=== PATIENT | female | born 1955 | race Caucasian/White ===

== ENCOUNTER 2021-07-15 17:24 | Inpatient (IN) | payer MEDICARE, OTHER ==
[~2021-07-15] VITALS: Ht 167.6 cm; Wt 98.1 kg
--- NOTE | 2021-07-15 18:11 | NUR ---
pt states she started c a fever last week and feeling very weak today. pt states her daughters are both +covid and live in same house. pt is not vax. "it changes your dna..i had a bad reaction to a vax in the ". piv estb. labs drawn c b/c x 2. placed on all monitors. pt was wheeled from lobby on 6l nc, 68%. placed on oxy mask at 15L, increased to 94%. call light inreach. cxr completed. aware of pending tests. will ctm.
[2021-07-15 18:12] LABS: BASOPHILS % (AUTO) 1 % (0-1); EOSINOPHILS % (AUTO) 1 % (1-7); LYMPHOCYTES % (AUTO) 16 % (22-44); MEAN CORPUSCULAR HEMOGLOBIN 29.9 pg (27.0-34.8); MEAN CORPUSCULAR HGB CONC 35.2 g/dL (32.4-35.8); MEAN PLATELET VOLUME 7.5 fL (7.4-10.4); MONOCYTES % (AUTO) 6 % (2-9); NEUTROPHILS % (AUTO) 76 % (42-75); PLATELET COUNT 278 x10^3/uL (130-400); RED BLOOD COUNT 4.75 x10^6/uL (3.82-5.3); RED CELL DISTRIBUTION WIDTH 14.2 % (9.6-15.2)
[2021-07-15 18:22] LABS: ALANINE AMINOTRANSFERASE 32 U/L (12-78); ALBUMIN 2.6 g/dL (3.4-5.0); ANION GAP 8 mmol/L (5-15); CALCIUM 8.1 mg/dL (8.5-10.1); CHLORIDE 95 mmol/L (98-107); CREATININE 0.89 mg/dL (0.55-1.02)
[2021-07-15 18:25] LABS: ALKALINE PHOSPHATASE 63 U/L (45-117); BILIRUBIN,TOTAL 0.9 mg/dL (0.2-1.0); TOTAL PROTEIN 6.8 g/dL (6.4-8.2)
--- NOTE | 2021-07-15 18:56 | NUR ---
Report from Sybil MISTRY
[2021-07-15] MEDS ORDERED: DEXAMETHASONE 4 MG/ML, 1ML IVPush ONE (19:00)
[2021-07-15] MEDS ORDERED: DOXYCYCLINE 100 MG in DEXTROSE 5% 250 ML IV SCH (19:00)
[2021-07-15] MEDS ORDERED: DEXAMETHASONE 4 MG/ML, 1ML ONE (19:36)
[2021-07-15] MEDS ORDERED: DOCUSATE 100 MG CAPSULE PO PRN (21:00)
[2021-07-15] MEDS ORDERED: MELATONIN 5 MG TABLET PO PRN (21:00)
[2021-07-15] MEDS ORDERED: ACETAMINOPHEN 325 MG TABLET PO PRN (21:00)
[2021-07-15] MEDS: ASCORBIC ACID 250 MG TAB PO SCH (21:00)
[2021-07-15] MEDS ORDERED: ONDANSETRON 2MG/ML, 2ML IVPush PRN (21:00)
[2021-07-15] MEDS ORDERED: CHOLECALCIFEROL 1,000 UNIT TABLET ONE (22:45)
[2021-07-15] MEDS ORDERED: ASCORBIC ACID 500 MG TABLET ONE (23:47)
--- NOTE | 2021-07-16 02:18 | NUR ---
PATIENT RESTING ON STRETCHER WITH EYES CLOSED. NAD. OXY MASK ON. CALL PICKENS IN REACH. BEDSIDE COMMODE IN REACH. WILL CONTINUE TO MONITOR.
--- NOTE | 2021-07-16 02:30 | NUR ---
Task RN: Patient has oxymask on and sats maintained at 79%. Applied NRB at 15lpm.
--- NOTE | 2021-07-16 03:59 | NUR ---
PATIENT PROVIDED WATER REQUESTED.
--- NOTE | 2021-07-16 04:10 | NUR ---
RT CALLED AT THIS TIME TO INITIATE HIGH FLOW NC DUE TO PATIENT BEING 73% SPO2 ON 15L NRB.
[2021-07-16] MEDS: DOXYCYCLINE 100 MG in DEXTROSE 5% 250 ML IV SCH ×2 (06:12→17:58)
[2021-07-16 06:22] LABS: ALBUMIN 2.7 g/dL (3.4-5.0); ANION GAP 8 mmol/L (5-15); CALCIUM 8.3 mg/dL (8.5-10.1); CHLORIDE 100 mmol/L (98-107)
[2021-07-16 06:25] LABS: ALANINE AMINOTRANSFERASE 30 U/L (12-78); ALKALINE PHOSPHATASE 59 U/L (45-117); BASOPHILS % (AUTO) 1 % (0-1); BILIRUBIN,TOTAL 0.8 mg/dL (0.2-1.0); CREATININE 0.78 mg/dL (0.55-1.02); EOSINOPHILS % (AUTO) 0 % (1-7); LYMPHOCYTES % (AUTO) 12 % (22-44); MEAN CORPUSCULAR HEMOGLOBIN 29.6 pg (27.0-34.8); MEAN CORPUSCULAR HGB CONC 35.1 g/dL (32.4-35.8); MEAN PLATELET VOLUME 7.7 fL (7.4-10.4); MONOCYTES % (AUTO) 6 % (2-9); NEUTROPHILS % (AUTO) 81 % (42-75); PLATELET COUNT 282 x10^3/uL (130-400); RED BLOOD COUNT 4.64 x10^6/uL (3.82-5.3); RED CELL DISTRIBUTION WIDTH 14.5 % (9.6-15.2); TOTAL PROTEIN 6.7 g/dL (6.4-8.2)
--- NOTE | 2021-07-16 06:53 | NUR ---
REPORT GIVEN TO FEDE LEONE.
[2021-07-16] MEDS ORDERED: ASCORBIC ACID 500 MG TABLET ONE ×2 (07:17→16:26)
[2021-07-16] MEDS ORDERED: ENOXAPARIN 40 MG/0.4 ML ONE (07:17)
[2021-07-16] MEDS: ENOXAPARIN 40 MG/0.4 ML SQ SCH ×2 (07:20→07:23)
[2021-07-16] MEDS: ASCORBIC ACID 250 MG TAB PO SCH (07:21)
--- NOTE | 2021-07-16 07:24 | NUR ---
patient in bed on oxygen. report taken and care assumed. brought patient morning medication of lovenox and she refused. stating she doesn't like shots, that she only takes natural meds. explained the importance of a blood thinner since she will be in bed and less mobile which puts her higher risk for clots/dvt's; refused. patient also began saying she does NOT want remdesvir.
[2021-07-16] MEDS ORDERED: ACETAMINOPHEN 325 MG TABLET PO PRN (07:30)
--- NOTE | 2021-07-16 07:38 | NUR ---
lab drawing pt
--- NOTE | 2021-07-16 07:49 | NUR ---
ordered hosp bed
--- NOTE | 2021-07-16 08:30 | NUR ---
got patient on hospital bed.
--- NOTE | 2021-07-16 08:54 | NUR ---
patient was adament to hospitalist that she wants to leave. she is refusing care. we discussed with ER MD Fraser because patient is on high flow nasal cannula and sat's mid to low 90% sitting up on high flow nasal cannula. Evelio discussed situation with patient and patient agreed to stay. comfort measures provided and helped patient get comfortable.
--- NOTE | 2021-07-16 09:29 | NUR ---
got patient breakfast tray.
[2021-07-16] MEDS ORDERED: ZINC SULFATE 220 MG CAPSULE ONE (09:34)
[2021-07-16] MEDS ORDERED: CHOLECALCIFEROL 5,000u TAB ONE (09:34)
[2021-07-16] MEDS: CHOLECALCIFEROL 5,000u TAB PO SCH (09:35)
[2021-07-16] MEDS: ZINC SULFATE 220 MG CAPSULE PO SCH (09:35)
--- NOTE | 2021-07-16 09:55 | NUR ---
patient ate most of meal tray. she is on phone.
--- NOTE | 2021-07-16 10:11 | NUR ---
patient up to bathroom. patient is not good at alerting staff and heard bed exit alarm, and came to help. got her safely to bathroom and back in bed. teaching done encouraging her to call call light for assistance
--- NOTE | 2021-07-16 11:20 | NUR ---
patient in bed, watching tv. ordering lunch
--- NOTE | 2021-07-16 12:20 | NUR ---
patient in bed watching tv. no complaints.
--- NOTE | 2021-07-16 13:07 | NUR ---
patient helped to bathroom, urine out in bsc
--- NOTE | 2021-07-16 13:18 | NUR ---
RELIEF RN: PT REFUSING REMDESIVIR INFUSION. DISCUSSED PRO/CONS C PT AND SHE CONTINUES TO REFUSE. WATCHING TV IN NAD. VSS. REMAINS ON HIGH FLOW.
--- NOTE | 2021-07-16 13:35 | NUR ---
RELIEF RN: DR TREVINO CONTACTED D/T PT REFUSING REMDESIVIR.
[2021-07-16] MEDS ORDERED: REMDESIVIR 200 MG in SODIUM CHLORIDE 0.9% 100 ML IVPB ONE (14:00)
--- NOTE | 2021-07-16 14:07 | NUR ---
patient refusing remdesvir.
--- NOTE | 2021-07-16 14:39 | NUR ---
patient eating all of lunch
[2021-07-16] MEDS: ASCORBIC ACID 500 MG TABLET PO SCH (16:38)
--- NOTE | 2021-07-16 17:52 | NUR ---
patient still eating left over chips and cookie, didn't want dinner tray.
--- NOTE | 2021-07-16 19:13 | NUR ---
report given to FEDE Williamson
[2021-07-16 20:20] VITALS: BP 133/88
[2021-07-17 01:13] VITALS: BP 108/58
[2021-07-17 06:04] LABS: ANION GAP 8 mmol/L (5-15); CALCIUM 8.6 mg/dL (8.5-10.1); CHLORIDE 104 mmol/L (98-107)
[2021-07-17 06:05] LABS: CREATININE 0.78 mg/dL (0.55-1.02)
[2021-07-17] MEDS ORDERED: CHOLECALCIFEROL 5,000u TAB ONE (07:15)
[2021-07-17] MEDS ORDERED: ZINC SULFATE 220 MG CAPSULE ONE (07:15)
[2021-07-17] MEDS ORDERED: ASCORBIC ACID 500 MG TABLET ONE (07:15)
[2021-07-17] MEDS ORDERED: ENOXAPARIN 40 MG/0.4 ML ONE (07:15)
[2021-07-17] MEDS: DOXYCYCLINE 100 MG in DEXTROSE 5% 250 ML IV SCH ×3 (07:22→18:35)
[2021-07-17] MEDS: ZINC SULFATE 220 MG CAPSULE PO SCH (07:22)
[2021-07-17] MEDS: CHOLECALCIFEROL 5,000u TAB PO SCH (07:22)
[2021-07-17] MEDS: ASCORBIC ACID 500 MG TABLET PO SCH ×2 (07:22→16:58)
[2021-07-17] MEDS: ENOXAPARIN 40 MG/0.4 ML SQ SCH ×2 (07:23→19:30)
--- NOTE | 2021-07-17 07:26 | NUR ---
PT REFUSING VIBRAMYCIN AND LOVENOX.
--- NOTE | 2021-07-17 09:01 | NUR ---
PT GIVEN JUICE AND PUDDING.
--- NOTE | 2021-07-17 12:30 | NUR ---
PT REPORT TO FEDE FELICIANO
[2021-07-17] MEDS ORDERED: REMDESIVIR 100 MG in SODIUM CHLORIDE 0.9% 100 ML IVPB SCH (13:00)
[2021-07-17 13:59] VITALS: BP 126/86
[2021-07-17 19:03] VITALS: BP 117/64
[2021-07-18 01:47] VITALS: BP 109/72
[2021-07-18 04:16] LABS: C-REACTIVE PROTEIN, QUANT 6.4 mg/dL (0.02-0.49)
[2021-07-18] MEDS: DOXYCYCLINE 100 MG in DEXTROSE 5% 250 ML IV SCH ×2 (06:09→19:32)
[2021-07-18] MEDS: ENOXAPARIN 40 MG/0.4 ML SQ SCH ×2 (06:09→19:33)
[2021-07-18 06:44] VITALS: BP 119/76
[2021-07-18] MEDS: ZINC SULFATE 220 MG CAPSULE PO SCH (11:29)
[2021-07-18] MEDS: CHOLECALCIFEROL 5,000u TAB PO SCH (11:29)
[2021-07-18] MEDS: ASCORBIC ACID 500 MG TABLET PO SCH ×2 (11:29→20:18)
[2021-07-18 14:39] VITALS: BP 126/72
[2021-07-18 19:00] VITALS: BP 114/68
[2021-07-19 01:45] VITALS: BP 118/65
[2021-07-19] MEDS: DOXYCYCLINE 100 MG in DEXTROSE 5% 250 ML IV SCH ×2 (06:34→19:00)
[2021-07-19] MEDS: CEFTRIAXONE 2 GM in DEXTROSE 5% 50 ML IVPB SCH (07:30)
[2021-07-19] MEDS: ENOXAPARIN 40 MG/0.4 ML SQ SCH ×2 (07:30→19:30)
[2021-07-19 09:04] VITALS: BP 122/69
[2021-07-19] MEDS: ZINC SULFATE 220 MG CAPSULE PO SCH (10:39)
[2021-07-19] MEDS: CHOLECALCIFEROL 5,000u TAB PO SCH (10:39)
[2021-07-19] MEDS: ASCORBIC ACID 500 MG TABLET PO SCH ×2 (10:39→17:00)
[2021-07-19 15:24] VITALS: BP 127/73
[2021-07-19 21:01] VITALS: BP 107/75
[2021-07-20 03:01] VITALS: BP 106/65
[2021-07-20] MEDS: DOXYCYCLINE 100 MG in DEXTROSE 5% 250 ML IV SCH ×2 (07:00→19:00)
[2021-07-20 07:04] VITALS: BP 101/67
[2021-07-20] MEDS: ENOXAPARIN 40 MG/0.4 ML SQ SCH ×2 (07:30→19:30)
[2021-07-20] MEDS: CEFTRIAXONE 2 GM in DEXTROSE 5% 50 ML IVPB SCH (07:30)
[2021-07-20] MEDS: ASCORBIC ACID 500 MG TABLET PO SCH ×2 (08:00→17:00)
[2021-07-20] MEDS: CHOLECALCIFEROL 5,000u TAB PO SCH (09:00)
[2021-07-20] MEDS: ZINC SULFATE 220 MG CAPSULE PO SCH (09:00)
[2021-07-20 12:12] VITALS: BP 146/89
[2021-07-20 21:29] VITALS: BP 111/74
[2021-07-21 00:33] VITALS: BP 102/68
[2021-07-21] MEDS: DOXYCYCLINE 100 MG in DEXTROSE 5% 250 ML IV SCH (07:00)
[2021-07-21] MEDS: CEFTRIAXONE 2 GM in DEXTROSE 5% 50 ML IVPB SCH (07:30)
[2021-07-21] MEDS: ENOXAPARIN 40 MG/0.4 ML SQ SCH (07:30)
[2021-07-21] MEDS: ASCORBIC ACID 500 MG TABLET PO SCH (08:00)
[2021-07-21] MEDS: CHOLECALCIFEROL 5,000u TAB PO SCH (08:20)
[2021-07-21] MEDS: ZINC SULFATE 220 MG CAPSULE PO SCH (08:20)
[2021-07-21] MEDS ORDERED: DOXYCYCLINE 100MG TABLET PO SCH (21:00)
== END 2021-07-21 10:36 | disposition home or self-care (01) | DRG 177 ==
LOC: ED 18:00 → EDIP 20:33 → 4EST 07-17 13:47
PROVIDERS: ADMIT Internal Medicine; ATTEND Family Medicine
PROC: 5A0935A Assistance with Respiratory Ventilation, Less than 24 Consecutive Hours, High Flow/Velocity Cannula (ICD-10-PCS; principal; 2021-07-16)
PROC: 5A0935A Assistance with Respiratory Ventilation, Less than 24 Consecutive Hours, High Flow/Velocity Cannula (ICD-10-PCS; 2021-07-19)
DX: U07.1 COVID-19 (principal); J96.01 Acute respiratory failure with hypoxia; J12.82 Pneumonia due to coronavirus disease 2019; E87.1 Hypo-osmolality and hyponatremia; E03.9 Hypothyroidism, unspecified; E66.9 Obesity, unspecified; Z88.0 Allergy status to penicillin; Z88.7 Allergy status to serum and vaccine; Z68.34 Body mass index [BMI] 34.0-34.9, adult
CPT/HCPCS: 36415; 36600; 71045; 80048; 80053; 82728; 82803; 83605; 83615; 84145; 85025; 85384; 86140; 87040; 93005; 96365; 96366; 96375; G0378; J1100; J7060; U0005; U0003